=== PATIENT | male | born 1970 | race Caucasian/White ===

== ENCOUNTER 2018-12-21 19:04 | Emergency (ER) | payer MEDICARE, MEDICAID ==
[~2018-12-21] VITALS: Ht 175.3 cm; Wt 95.0 kg
[~2018-12-21 19:04] MED LIST: DIVA125T2 PO; METF500T PO
[2018-12-21 19:07] VITALS: BP 127/88
--- NOTE | 2018-12-21 19:13 | NUR ---
pt moved from triage to RAP room. doorshakerNETO Zapien aware of pt and ER sitter has been called to sit with pt
== END 2018-12-21 20:58 | disposition home or self-care (01) ==
LOC: ER 19:05
DX: F32.9 Major depressive disorder, single episode, unspecified (principal); Z79.899 Other long term (current) drug therapy; Z56.0 Unemployment, unspecified
CPT/HCPCS: 99284

== ENCOUNTER 2019-05-12 18:44 | Emergency (ER) | payer MEDICAID, MEDICARE ==
[~2019-05-12] VITALS: Ht 172.7 cm; Wt 96.4 kg
[2019-05-12 20:20] LABS: BASOPHILS # (AUTO) 0.1 X10'3 (0-0.2); BASOPHILS % (AUTO) 1.3 % (0-1); EOSINOPHILS # (AUTO) 0.1 X10'3 (0-0.9); EOSINOPHILS % (AUTO) 1.4 % (0-6); HEMATOCRIT 41.1 % (42.0-52.0); HEMOGLOBIN 13.9 g/dl (14.0-17.9); LYMPHOCYTES # (AUTO) 3.5 X10'3 (1.1-4.8); LYMPHOCYTES % (AUTO) 48.5 % (21-51); MEAN CORPUSCULAR HEMOGLOBIN 30.7 PG (27.0-31.0); MEAN CORPUSCULAR HGB CONC 33.9 g/dL (33.0-36.5); MEAN CORPUSCULAR VOLUME 90.7 FL (78-98); MEAN PLATELET VOLUME 7.5 FL (7.4-10.4); MONOCYTES # (AUTO) 0.5 X10'3 (0-0.9); MONOCYTES % (AUTO) 6.7 % (2-12); NEUTROPHILS % (AUTO) 42.1 % (42-75); PLATELET COUNT 162 X10'3 (140-440); RED BLOOD COUNT 4.53 X10'6 (4.70-6.10); RED CELL DISTRIBUTION WIDTH 15.7 % (11.5-14.5); WHITE BLOOD COUNT 7.2 X10'3 (4.5-11.0)
[2019-05-12 20:39] LABS: ALANINE AMINOTRANSFERASE 29 U/L (12-78); ALBUMIN 3.9 G/DL (3.4-5.0); ALBUMIN/GLOBULIN RATIO 1.2 (1.1-1.5); ALKALINE PHOSPHATASE 57 IU/L (46-116); ANION GAP 8 (8-16); ASPARTATE AMINO TRANSFERASE 26 U/L (10-37); BILIRUBIN,TOTAL 0.4 MG/DL (0.1-1.0); BLOOD UREA NITROGEN 37 MG/DL (7-18); CALCIUM 9.4 MG/DL (8.5-10.1); CHLORIDE 102 MMOL/L (99-107); CREATININE 1.37 MG/DL (0.60-1.10); GLUCOSE 130 MG/DL (70-104); POTASSIUM 4.1 MMOL/L (3.5-5.1); SODIUM 142 MMOL/L (135-145); TOTAL CARBON DIOXIDE 31.6 MMOL/L (24-32); TOTAL PROTEIN 7.1 G/DL (6.4-8.2); eGFR 56 ML/MIN
[2019-05-12 20:52] VITALS: BP 116/68
== END 2019-05-12 21:20 | disposition home or self-care (01) ==
LOC: ER 18:44
DX: R42 Dizziness and giddiness (principal); F17.200 Nicotine dependence, unspecified, uncomplicated; Z56.0 Unemployment, unspecified; Z79.899 Other long term (current) drug therapy
CPT/HCPCS: 36415; 80053; 83735; 84484; 85025; 93005; 99284

== ENCOUNTER 2020-06-09 15:02 | Emergency (ER) | payer MEDICARE, MEDICAID ==
[~2020-06-09] VITALS: Ht 175.3 cm; Wt 93.2 kg
[2020-06-09] MEDS ORDERED: aspirin 81mg tab.chew PO ONE (15:20)
[2020-06-09] MEDS ORDERED: nitroGLYCERIN 0.4mg SUBLingual tab SL PRN (15:20)
[2020-06-09 15:42] LABS: BASOPHILS # (AUTO) 0.1 X10'3 (0-0.2); BASOPHILS % (AUTO) 1.2 % (0-1); EOSINOPHILS # (AUTO) 0.1 X10'3 (0-0.9); EOSINOPHILS % (AUTO) 1.6 % (0-6); HEMATOCRIT 44.3 % (42.0-52.0); HEMOGLOBIN 15.2 g/dl (14.0-17.9); LYMPHOCYTES # (AUTO) 3.3 X10'3 (1.1-4.8); LYMPHOCYTES % (AUTO) 47.8 % (21-51); MEAN CORPUSCULAR HEMOGLOBIN 31.2 PG (27.0-31.0); MEAN CORPUSCULAR HGB CONC 34.4 g/dL (33.0-36.5); MEAN CORPUSCULAR VOLUME 90.7 FL (78-98); MEAN PLATELET VOLUME 8.2 FL (7.4-10.4); MONOCYTES # (AUTO) 0.4 X10'3 (0-0.9); MONOCYTES % (AUTO) 5.3 % (2-12); NEUTROPHILS % (AUTO) 44.1 % (42-75); PLATELET COUNT 214 X10'3 (140-440); RED BLOOD COUNT 4.88 X10'6 (4.70-6.10); RED CELL DISTRIBUTION WIDTH 15.6 % (11.5-14.5); WHITE BLOOD COUNT 6.8 X10'3 (4.5-11.0)
--- NOTE | 2020-06-09 15:42 | NUR ---
CP ON SCALE 9/10 AFTER NITRO PAIN NOW 4/10. REFUSING SECOND DOSE OF NTG
[2020-06-09 15:50] VITALS: BP 125/82
[2020-06-09 15:55] LABS: ALBUMIN 3.5 G/DL (3.4-5.0); ALKALINE PHOSPHATASE 77 IU/L (46-116); ANION GAP 10 (8-16); BILIRUBIN,TOTAL 0.4 MG/DL (0.1-1.0); BLOOD UREA NITROGEN 24 MG/DL (7-18); BUN/CREATININE RATIO 21.4 (5.4-32.0); CALCIUM 8.3 MG/DL (8.5-10.1); CHLORIDE 104 MMOL/L (99-107); CREATININE 1.12 MG/DL (0.60-1.10); SODIUM 141 MMOL/L (135-145); TOTAL CARBON DIOXIDE 26.7 MMOL/L (24-32); TOTAL PROTEIN 6.9 G/DL (6.4-8.2); eGFR 70 ML/MIN
[2020-06-09 15:57] LABS: GLUCOSE 156 MG/DL (70-104); POTASSIUM 4.9 MMOL/L (3.5-5.1)
[2020-06-09 16:06] LABS: ALANINE AMINOTRANSFERASE 28 U/L (12-78); ASPARTATE AMINO TRANSFERASE 32 U/L (10-37)
--- NOTE | 2020-06-09 17:08 | NUR ---
AMBULATED TO BR VOIDED X1
[2020-06-09] MEDS ORDERED: NITR0.4T51 SL (17:34)
== END 2020-06-09 18:45 | disposition home or self-care (01) ==
LOC: ER 15:03
DX: I11.0 Hypertensive heart disease with heart failure (principal); I50.9 Heart failure, unspecified; I25.10 Atherosclerotic heart disease of native coronary artery without angina pectoris; E78.00 Pure hypercholesterolemia, unspecified; E11.9 Type 2 diabetes mellitus without complications; F31.9 Bipolar disorder, unspecified; F17.200 Nicotine dependence, unspecified, uncomplicated; Z56.0 Unemployment, unspecified; Z79.899 Other long term (current) drug therapy
CPT/HCPCS: 36415; 71045; 80053; 84484; 85025; 93005; 99285

== ENCOUNTER 2020-10-16 01:04 | Emergency (ER) | payer MEDICARE, MEDICAID ==
[~2020-10-16] VITALS: Ht 175.3 cm; Wt 95.5 kg
[2020-10-16] MEDS ORDERED: acetaminophen 325mg tablet PO ONE (01:10)
[2020-10-16 01:13] VITALS: BP 139/89
== END 2020-10-16 01:44 | disposition home or self-care (01) ==
LOC: ER 01:05
DX: S46.011A Strain of muscle(s) and tendon(s) of the rotator cuff of right shoulder, initial encounter (principal); M25.511 Pain in right shoulder; I25.10 Atherosclerotic heart disease of native coronary artery without angina pectoris; I50.9 Heart failure, unspecified; I11.0 Hypertensive heart disease with heart failure; E78.00 Pure hypercholesterolemia, unspecified; E11.9 Type 2 diabetes mellitus without complications; F31.9 Bipolar disorder, unspecified; Z98.890 Other specified postprocedural states; Z56.0 Unemployment, unspecified; Z79.899 Other long term (current) drug therapy; X58.XXXA Exposure to other specified factors, initial encounter; Y93.89 Activity, other specified; Y92.89 Other specified places as the place of occurrence of the external cause; Y99.8 Other external cause status
CPT/HCPCS: 29105; 99282; 99283

== ENCOUNTER 2020-10-25 00:21 | Emergency (ER) | payer MEDICARE, MEDICAID ==
[~2020-10-25] VITALS: Ht 172.7 cm; Wt 97.5 kg
[2020-10-25 00:31] VITALS: BP 142/85
--- NOTE | 2020-10-25 02:50 | NUR ---
pt wants to leave, his caregiver was notified and he will be coming up here to get him.
== END 2020-10-25 03:05 | disposition left against medical advice (07) ==
LOC: ER 00:21
DX: M25.511 Pain in right shoulder (principal); Z53.21 Procedure and treatment not carried out due to patient leaving prior to being seen by health care provider

== ENCOUNTER 2020-10-28 18:13 | Emergency (ER) | payer MEDICARE, MEDICAID | END 2020-10-28 21:36 | disposition left against medical advice (07) | LOC: ER 18:14 | DX: R07.89 Other chest pain (principal); Z53.21 Procedure and treatment not carried out due to patient leaving prior to being seen by health care provider | CPT/HCPCS: 93005 ==

== ENCOUNTER 2020-12-03 18:00 | Inpatient (IN) | payer MEDICARE, MEDICAID ==
[~2020-12-03] VITALS: Ht 175.3 cm; Wt 96.0 kg
[2020-12-03 18:30] LABS: BASOPHILS # (AUTO) 0.1 X10'3 (0-0.2); BASOPHILS % (AUTO) 1.4 % (0-1); EOSINOPHILS # (AUTO) 0.1 X10'3 (0-0.9); EOSINOPHILS % (AUTO) 1.2 % (0-6); HEMATOCRIT 44.1 % (42.0-52.0); HEMOGLOBIN 14.7 g/dl (14.0-17.9); LYMPHOCYTES # (AUTO) 2.6 X10'3 (1.1-4.8); LYMPHOCYTES % (AUTO) 43.4 % (21-51); MEAN CORPUSCULAR HEMOGLOBIN 29.2 PG (27.0-31.0); MEAN CORPUSCULAR HGB CONC 33.3 g/dL (33.0-36.5); MEAN CORPUSCULAR VOLUME 87.7 FL (78-98); MEAN PLATELET VOLUME 8.3 FL (7.4-10.4); MONOCYTES # (AUTO) 0.4 X10'3 (0-0.9); MONOCYTES % (AUTO) 6.7 % (2-12); NEUTROPHILS # (AUTO) 2.8 X10'3 (1.8-7.7); NEUTROPHILS % (AUTO) 47.3 % (42-75); PLATELET COUNT 201 X10'3 (140-440); RED BLOOD COUNT 5.03 X10'6 (4.70-6.10); RED CELL DISTRIBUTION WIDTH 15.2 % (11.5-14.5); WHITE BLOOD COUNT 5.9 X10'3 (4.5-11.0)
[2020-12-03 18:39] LABS: ALANINE AMINOTRANSFERASE 28 U/L (12-78); ALBUMIN 3.3 G/DL (3.4-5.0); ALKALINE PHOSPHATASE 62 IU/L (46-116); ANION GAP 7 (8-16); ASPARTATE AMINO TRANSFERASE 21 U/L (10-37); BILIRUBIN,TOTAL 0.2 MG/DL (0.1-1.0); BLOOD UREA NITROGEN 14 MG/DL (7-18); BUN/CREATININE RATIO 14.3 (5.4-32.0); CALCIUM 8.6 MG/DL (8.5-10.1); CHLORIDE 103 MMOL/L (99-107); CREATININE 0.98 MG/DL (0.60-1.10); GLUCOSE 301 MG/DL (70-104); POTASSIUM 4.1 MMOL/L (3.5-5.1); SODIUM 139 MMOL/L (135-145); TOTAL PROTEIN 6.7 G/DL (6.4-8.2); eGFR 82 ML/MIN
[2020-12-03 18:47] LABS: MAGNESIUM 1.7 MG/DL (1.5-2.4)
[2020-12-03] MEDS ORDERED: PERFLUTREN PROTEIN-A MICROSPHR (Optison) 0.22 MG/ML 3ML VIAL IV ONE (19:30)
[2020-12-03] MEDS ORDERED: potassium Cl 20 mEq SR tablet PO PRN ×2 (19:30)
[2020-12-03] MEDS ORDERED: magnesium 2GM in 50ml NS 50 ML IV PRN (19:30)
[2020-12-03] MEDS ORDERED: magnesium 4gm in 100ml NS 100 ML IV PRN (19:30)
[2020-12-03] MEDS ORDERED: potassium Cl 40MEQ/1/2NS 520ml 520 ML IV PRN ×2 (19:30)
[2020-12-03] MEDS ORDERED: magnesium Cl slow-release 64mg tablet PO PRN (19:30)
[2020-12-03] MEDS ORDERED: QUET100T34 PO (19:37)
[2020-12-03] MEDS ORDERED: DIVA500T9 PO (19:37)
[2020-12-03] MEDS ORDERED: LORA10TA7 PO (19:37)
[2020-12-03] MEDS ORDERED: LEVO88TA7 PO (19:37)
[2020-12-03] MEDS ORDERED: CARV6.256 PO (19:37)
[2020-12-03] MEDS ORDERED: METF-438 PO (19:37)
[2020-12-03] MEDS ORDERED: ARIP5TAB60 PO (19:37)
[2020-12-03] MEDS ORDERED: FENO145T25 PO (19:37)
[2020-12-03] MEDS ORDERED: ATOR-2 PO (19:37)
[2020-12-03] MEDS ORDERED: LOSA25TA41 PO (19:37)
[2020-12-03] MEDS ORDERED: BUPR100T7 PO (19:37)
[2020-12-03] MEDS: K and/or MAG REPLACEMENT MC SCH (20:00)
[2020-12-03] MEDS: normal saline 1000ml 1,000 ML IV SCH (20:35)
[2020-12-03] MEDS: carvedilol 6.25mg tablet PO SCH (20:35)
[2020-12-03] MEDS: divalproex sod 250mg ER (24-hour) tablet PO SCH (20:36)
[2020-12-03] MEDS ORDERED: quetiapine 100mg tablet PO SCH (21:00)
[2020-12-03 21:02] LABS: URINE AMPHETAMINE SCREEN NEGATIVE (Neg); URINE BARBITUATE SCREEN NEGATIVE (Neg); URINE BENZODIAZEPINES SCREEN NEGATIVE (Neg); URINE CANNABINOID SCREEN NEGATIVE (Neg); URINE COCAINE SCREEN NEGATIVE (Neg); URINE METHADONE SCREEN NEGATIVE (Neg); URINE OPIATE SCREEN NEGATIVE (Neg); URINE PHENCYCLIDINE SCREEN NEGATIVE (Neg)
[2020-12-04] VITALS (9 sets, daily range): BP systolic 123–139; BP diastolic 77–86
[2020-12-04] MEDS: ipratropium/albuterol 3ml nebule NEB SCH ×3 (02:45→15:00)
--- NOTE | 2020-12-04 06:00 | NUR ---
Patient in room PCU 3017. I have received report from Enzo DUQUE and had the opportunity to ask questions and assume patient care.
[2020-12-04] MEDS ORDERED: aminophylline 250mg/10ml inj. IV PRN (06:35)
[2020-12-04] MEDS ORDERED: nitroGLYCERIN 0.4mg SUBLingual tab SL PRN (06:35)
[2020-12-04] MEDS ORDERED: regadenoson 0.4mg/5ml syringe IV PRN (06:35)
[2020-12-04] MEDS ORDERED: metoprolol tartrate 1mg/ml inj IV PRN (06:35)
[2020-12-04 06:55] LABS: BASOPHILS % (AUTO) 0.9 % (0-1); EOSINOPHILS # (AUTO) 0.1 X10'3 (0-0.9); EOSINOPHILS % (AUTO) 1.8 % (0-6); HEMATOCRIT 44.8 % (42.0-52.0); HEMOGLOBIN 15.1 g/dl (14.0-17.9); LYMPHOCYTES % (AUTO) 53.2 % (21-51); MEAN CORPUSCULAR HEMOGLOBIN 29.5 PG (27.0-31.0); MEAN CORPUSCULAR HGB CONC 33.7 g/dL (33.0-36.5); MEAN CORPUSCULAR VOLUME 87.6 FL (78-98); MEAN PLATELET VOLUME 8.5 FL (7.4-10.4); MONOCYTES # (AUTO) 0.4 X10'3 (0-0.9); MONOCYTES % (AUTO) 7.5 % (2-12); NEUTROPHILS # (AUTO) 2.1 X10'3 (1.8-7.7); NEUTROPHILS % (AUTO) 36.6 % (42-75); PLATELET COUNT 178 X10'3 (140-440); RED BLOOD COUNT 5.11 X10'6 (4.70-6.10); RED CELL DISTRIBUTION WIDTH 15.3 % (11.5-14.5); WHITE BLOOD COUNT 5.7 X10'3 (4.5-11.0)
[2020-12-04 07:13] LABS: ALBUMIN 3.1 G/DL (3.4-5.0); ANION GAP 7 (8-16); BLOOD UREA NITROGEN 14 MG/DL (7-18); BUN/CREATININE RATIO 17.1 (5.4-32.0); CHLORIDE 107 MMOL/L (99-107); CHOL/HDL RATIO 14.9 (0.00-4.99); CHOLESTEROL 179 MG/DL (0-200); CREATININE 0.82 MG/DL (0.60-1.10); GLUCOSE 158 MG/DL (70-104); HDL CHOLESTEROL 12 MG/DL (35-60); LDL CHOLESTEROL 105 MG/DL (50-100); POTASSIUM 4.2 MMOL/L (3.5-5.1); SODIUM 142 MMOL/L (135-145); TOTAL CARBON DIOXIDE 27.6 MMOL/L (24-32); TRIGLYCERIDES 362 MG/DL (20-135); eGFR > 90 ML/MIN
[2020-12-04] MEDS: normal saline 1000ml 1,000 ML IV SCH ×2 (07:38→11:38)
[2020-12-04] MEDS: divalproex sod 250mg ER (24-hour) tablet PO SCH (07:43)
[2020-12-04] MEDS ORDERED: levoTHYROXINE 88mcg tablet PO SCH (08:00)
[2020-12-04] MEDS: K and/or MAG REPLACEMENT MC SCH (08:00)
[2020-12-04] MEDS ORDERED: fenofibrate 145mg tablet PO SCH (08:00)
[2020-12-04] MEDS ORDERED: atorvastatin 20mg tablet PO SCH (08:00)
[2020-12-04] MEDS ORDERED: losartan 25mg tablet PO SCH (08:00)
[2020-12-04] MEDS ORDERED: loratadine 10mg tablet PO SCH (08:00)
[2020-12-04] MEDS ORDERED: aripiprazole 5mg tablet PO SCH (08:00)
[2020-12-04] MEDS ORDERED: buPROPion SR 100mg tab PO SCH (08:00)
[2020-12-04] MEDS ORDERED: methylPREDNISolone sod succ/PF 40mg inj. IV SCH (08:00)
[2020-12-04] MEDS ORDERED: glucagon, human recombinant 1mg kit SUBCUT PRN (09:10)
[2020-12-04] MEDS ORDERED: MESSAGE TO PHARMACY PO ONE (09:10)
[2020-12-04] MEDS ORDERED: dextrose 50%-water 50ml dispensing syringe IV PRN ×2 (09:10)
[2020-12-04] MEDS ORDERED: insulin Lispro (HumaLOG) vial - multi-dose SQ SCH (09:10)
[2020-12-04] MEDS ORDERED: dextrose ORAL solution 15 GM/59 ML bottle PO PRN ×2 (09:10)
[2020-12-04 09:48] LABS: HEMOGLOBIN A1C 10.4 % (4.5-6.2)
[2020-12-04 10:44] LABS: TOTAL CELLS COUNTED 100
[2020-12-04 10:45] LABS: PLATELET ESTIMATE NORMAL; SMUDGE CELLS 1+
--- NOTE | 2020-12-04 11:59 | NUR ---
Called [facility] and they will be up soon
[2020-12-04] MEDS: carvedilol 6.25mg tablet PO SCH (12:56)
--- NOTE | 2020-12-04 13:40 | NUR ---
PAGER ID: [phone] MESSAGE: Praveen [phone] Re: Jv [id number] Mariluz results are back
--- NOTE | 2020-12-04 15:20 | NUR ---
PAGER ID: [phone] MESSAGE: SeemaYakaroulerRitika [phone] Re: Jv [id number] please call re: consult and can patient eat.
[2020-12-04] MEDS ORDERED: ASPI81TA49 PO (15:37)
--- NOTE | 2020-12-04 17:19 | NUR ---
Copy of patients discharge sent with patients mother Anju. Also, Discharge instructions reviewed with patient and Jose from patients long-term facility. All questions answered. Patients IV dc'd cannula intact and tele monitor dc'd for discharge. Jose and patient escorted to Jose's vehicle by manager continuous improvement Lizy. Patient sated he had all his belongings.
[2020-12-04] MEDS ORDERED: insulin glargine (Lantus) pen - multi-dose SQ SCH (21:00)
[2020-12-04] MEDS ORDERED: famotidine 20mg tablet PO SCH (21:00)
== END 2020-12-04 17:03 | disposition home or self-care (01) | DRG 281 ==
LOC: ER 18:00 → ED HOLD 19:30 → PCU 3S 22:49
PROVIDERS: ADMIT Internal Medicine; ATTEND Family Medicine
PROC: 4A02XM4 Measurement of Cardiac Total Activity, External Approach (ICD-10-PCS; principal; 2020-12-04)
PROC: 3E073KZ Introduction of Other Diagnostic Substance into Coronary Artery, Percutaneous Approach (ICD-10-PCS; 2020-12-04)
DX: I21.4 Non-ST elevation (NSTEMI) myocardial infarction (principal); I50.22 Chronic systolic (congestive) heart failure; J44.1 Chronic obstructive pulmonary disease with (acute) exacerbation; E03.9 Hypothyroidism, unspecified; E11.9 Type 2 diabetes mellitus without complications; E78.00 Pure hypercholesterolemia, unspecified; E78.1 Pure hyperglyceridemia; E78.5 Hyperlipidemia, unspecified; F17.210 Nicotine dependence, cigarettes, uncomplicated; G47.33 Obstructive sleep apnea (adult) (pediatric); F31.9 Bipolar disorder, unspecified; I11.0 Hypertensive heart disease with heart failure; I25.10 Atherosclerotic heart disease of native coronary artery without angina pectoris; Q86.0 Fetal alcohol syndrome (dysmorphic); Z79.82 Long term (current) use of aspirin; Z79.84 Long term (current) use of oral hypoglycemic drugs; Z79.899 Other long term (current) drug therapy; Z95.810 Presence of automatic (implantable) cardiac defibrillator; Z56.0 Unemployment, unspecified; Z71.6 Tobacco abuse counseling
CPT/HCPCS: 36415; 71045; 78452; 80048; 80053; 80061; 80305; 82948; 83036; 83735; 83880; 84484; 85007; 85025; 87081; 93005; 93017; 93306; 94640; 94760; 99285; A9500; G0378; J1815; J2785; J2920; J7030

== ENCOUNTER 2020-12-29 16:46 | Emergency (ER) | payer MEDICARE, MEDICAID ==
[~2020-12-29 16:46] MED LIST changes: +ARIP5TAB60 PO; +ASPI81TA49 PO; +ATOR-2 PO; +BUPR100T7 PO; +CARV6.256 PO; -DIVA125T2 PO; +DIVA500T9 PO; +FENO145T25 PO; +LEVO88TA7 PO; +LORA10TA7 PO; +LOSA25TA41 PO; +METF-438 PO; -METF500T PO; +QUET100T34 PO
== END 2020-12-29 18:16 | disposition left against medical advice (07) ==
LOC: ER 16:48
DX: R45.851 Suicidal ideations (principal); Z53.21 Procedure and treatment not carried out due to patient leaving prior to being seen by health care provider

== ENCOUNTER 2021-01-25 22:44 | Inpatient (IN) | payer MEDICARE, MEDICAID ==
[~2021-01-25] VITALS: Ht 175.3 cm; Wt 106.8 kg
[2021-01-25 23:27] LABS: BASOPHILS # (AUTO) 0.1 X10'3 (0-0.2); BASOPHILS % (AUTO) 1.7 % (0-1); EOSINOPHILS # (AUTO) 0.1 X10'3 (0-0.9); EOSINOPHILS % (AUTO) 1.5 % (0-6); HEMATOCRIT 42.4 % (42.0-52.0); HEMOGLOBIN 14.5 g/dl (14.0-17.9); LYMPHOCYTES % (AUTO) 30.1 % (21-51); MEAN CORPUSCULAR HEMOGLOBIN 29.8 PG (27.0-31.0); MEAN CORPUSCULAR HGB CONC 34.2 g/dL (33.0-36.5); MEAN CORPUSCULAR VOLUME 86.9 FL (78-98); MEAN PLATELET VOLUME 8.3 FL (7.4-10.4); MONOCYTES # (AUTO) 0.6 X10'3 (0-0.9); MONOCYTES % (AUTO) 8.8 % (2-12); NEUTROPHILS # (AUTO) 3.9 X10'3 (1.8-7.7); NEUTROPHILS % (AUTO) 57.9 % (42-75); PLATELET COUNT 175 X10'3 (140-440); RED BLOOD COUNT 4.88 X10'6 (4.70-6.10); RED CELL DISTRIBUTION WIDTH 15.8 % (11.5-14.5); WHITE BLOOD COUNT 6.8 X10'3 (4.5-11.0)
[2021-01-25 23:37] LABS: ALANINE AMINOTRANSFERASE 31 U/L (12-78); ALBUMIN 3.4 G/DL (3.4-5.0); ALBUMIN/GLOBULIN RATIO 1.1 (1.1-1.5); ALKALINE PHOSPHATASE 62 IU/L (46-116); ANION GAP 11 (8-16); ASPARTATE AMINO TRANSFERASE 23 U/L (10-37); BILIRUBIN,TOTAL 0.4 MG/DL (0.1-1.0); BLOOD UREA NITROGEN 17 MG/DL (7-18); CHLORIDE 107 MMOL/L (99-107); CREATININE 0.81 MG/DL (0.60-1.10); GLUCOSE 127 MG/DL (70-104); POTASSIUM 4.3 MMOL/L (3.5-5.1); SODIUM 143 MMOL/L (135-145); TOTAL CARBON DIOXIDE 24.6 MMOL/L (24-32); TOTAL PROTEIN 6.6 G/DL (6.4-8.2); eGFR > 90 ML/MIN
[2021-01-25 23:44] LABS: D-DIMER 0.71 MG/L FEU (0-0.50)
[2021-01-26] MEDS ORDERED: enoxaparin 100mg/ml syringe SUBCUT ONE (00:15)
[2021-01-26] MEDS ORDERED: iohexol 350MG/ML 100ml bottle IV ONE (00:21)
[2021-01-26 00:49] LABS: PARTIAL THROMBOPLASTIN TIME 25 SECONDS (22-32)
[2021-01-26] MEDS ORDERED: acetaminophen 325mg tablet PO PRN ×2 (01:00)
[2021-01-26] MEDS ORDERED: diphenhydrAMINE 25mg capsule PO PRN (01:00)
[2021-01-26] MEDS ORDERED: bisacodyl 10mg suppository rectal RC PRN (01:00)
[2021-01-26] MEDS ORDERED: ondansetron 4mg rapidly disintigrating tab PO PRN (01:00)
[2021-01-26] MEDS ORDERED: ipratropium/albuterol 3ml nebule NEB PRN (01:00)
[2021-01-26] MEDS ORDERED: diphenhydrAMINE 50 mg/ml inj IV PRN (01:00)
[2021-01-26] MEDS ORDERED: HYDROcodone/acetaminophen 5mg/325mg tablet PO PRN (01:00)
[2021-01-26] MEDS ORDERED: HYDROmorphone inj. 0.5 MG/0.5 ML DISP.SYRIN IV PRN (01:00)
[2021-01-26] MEDS ORDERED: morphine 2 MG/ML inj. syringe IV PRN ×2 (01:00)
[2021-01-26] MEDS ORDERED: HYDROcodone/acetaminophen 10/325mg tab PO PRN (01:00)
[2021-01-26] MEDS ORDERED: mag hydrox/Alum hydrox/simeth 30ml oral suspension PO PRN (01:00)
[2021-01-26] MEDS ORDERED: magnesium hydroxide 30ml (MOM) UD suspension PO PRN (01:00)
[2021-01-26] MEDS ORDERED: ondansetron/PF 4mg/2ml inj IV PRN (01:00)
[2021-01-26] MEDS ORDERED: acetaminophen 650mg rectal suppository RC PRN (01:00)
[2021-01-26 02:22] VITALS: BP 114/64
[2021-01-26 02:34] LABS: MAGNESIUM 1.3 MG/DL (1.5-2.4)
[2021-01-26 03:28] LABS: PHOSPHORUS 4.3 MG/DL (2.3-4.5)
[2021-01-26] MEDS ORDERED: aspirin 81mg, enteric-coated 1 TAB TABLET.DR PO SCH (08:00)
[2021-01-26] MEDS ORDERED: losartan 25mg tablet PO SCH (08:00)
[2021-01-26] MEDS ORDERED: carvedilol 6.25mg tablet PO SCH (08:00)
[2021-01-26] MEDS ORDERED: atorvastatin 20mg tablet PO SCH (08:00)
[2021-01-26] MEDS ORDERED: aripiprazole 5mg tablet PO SCH (08:00)
[2021-01-26] MEDS ORDERED: buPROPion SR 100mg tab PO SCH (08:00)
[2021-01-26] MEDS ORDERED: docusate sod 100mg capsule PO SCH (08:00)
[2021-01-26] MEDS ORDERED: levoTHYROXINE 88mcg tablet PO SCH (08:00)
[2021-01-26] MEDS ORDERED: divalproex sod 250mg ER (24-hour) tablet PO SCH (08:00)
[2021-01-26] MEDS ORDERED: fenofibrate 145mg tablet PO SCH (08:00)
[2021-01-26] MEDS ORDERED: temazepam 15mg capsule PO PRN (21:00)
[2021-01-26] MEDS ORDERED: quetiapine 100mg tablet PO SCH (21:00)
== END 2021-01-26 08:06 | disposition left against medical advice (07) | DRG 202 ==
LOC: ER 22:45 → ED HOLD 01-26 01:01 → UNDOADMIN 01-26 01:01 → UNDODISIN 01-26 08:06
PROVIDERS: ADMIT Family Medicine; ATTEND Family Medicine
PROC: B32T1ZZ Computerized Tomography (CT Scan) of Left Pulmonary Artery using Low Osmolar Contrast (ICD-10-PCS; principal; 2021-01-26)
PROC: B3201ZZ Computerized Tomography (CT Scan) of Thoracic Aorta using Low Osmolar Contrast (ICD-10-PCS; 2021-01-26)
PROC: B32S1ZZ Computerized Tomography (CT Scan) of Right Pulmonary Artery using Low Osmolar Contrast (ICD-10-PCS; 2021-01-26)
DX: J45.901 Unspecified asthma with (acute) exacerbation (principal); I21.4 Non-ST elevation (NSTEMI) myocardial infarction; I50.23 Acute on chronic systolic (congestive) heart failure; Z53.29 Procedure and treatment not carried out because of patient's decision for other reasons; E03.9 Hypothyroidism, unspecified; E11.9 Type 2 diabetes mellitus without complications; E66.9 Obesity, unspecified; E78.00 Pure hypercholesterolemia, unspecified; E78.5 Hyperlipidemia, unspecified; F31.9 Bipolar disorder, unspecified; I11.0 Hypertensive heart disease with heart failure; I25.10 Atherosclerotic heart disease of native coronary artery without angina pectoris; J44.9 Chronic obstructive pulmonary disease, unspecified; Z72.0 Tobacco use; Z95.0 Presence of cardiac pacemaker; Z68.34 Body mass index [BMI] 34.0-34.9, adult; Z56.0 Unemployment, unspecified; Z79.899 Other long term (current) drug therapy; Z79.82 Long term (current) use of aspirin; Z71.6 Tobacco abuse counseling
CPT/HCPCS: 36415; 71045; 71275; 80053; 83735; 83880; 84100; 84443; 84484; 85025; 85379; 85610; 85730; 93005; 99285; G0378; J1650; Q9967